=== PATIENT | female | born 1995 ===

== ENCOUNTER → 2017-06-11 | Outpatient (REF) | payer BC | LOC: M WUC 09:38 | PROVIDERS: ATTEND Physician Assistant | DX: R30.0 Dysuria (principal) ==

== ENCOUNTER → 2017-06-23 | Outpatient (REF) | payer BC | LOC: M LAB REF 17:48 | PROVIDERS: ATTEND Nurse Practitioner Women's Health | DX: Z11.3 Encounter for screening for infections with a predominantly sexual mode of transmission (principal) ==

== ENCOUNTER → 2017-12-05 | Outpatient (REF) | payer BC | LOC: M LAB REF 12:23 | DX: J02.9 Acute pharyngitis, unspecified (principal) | CPT/HCPCS: 87070 ==